=== PATIENT | male | born 1970 | race Caucasian/White ===

== ENCOUNTER → 2016-05-30 | Emergency (ER) | payer OTHER ==
[~2016-05-30] MED LIST: NALOXONE HCL 0.4 MG/ML VIAL IVPUSH ONE
[2016-05-30 18:26] VITALS: TEMP 97; BMI 30.7
--- NOTE | 2016-05-30 18:34 | PDOC ---
[id number] No Limitations - History of Present Illness Initial Comments: 05/30/16 18:36 Patient is a 45 year old male with no significant past medical history who was brought in by a friend to the [facility] waiting room after using drugs. Patient became apneic and slump in the wheelchair upon arrival. He was immediately brought into main ED with 100 O2 ample bag ventilation. Narcan 2 mg of Narcan were administered at 6:06 and patient became responsive. Patient was non combative but was disoriented. He noted that he had a fight with his ex girlfriend and took some pills. He stated I dont really know what I took maybe a little hydrocodone. He denies use of heroin. Patients friend noted that they were at a gas station and he went to get something and the patient was fine but as he came back he found him snoring and unresponsive. He states that he takes pills sometimes and I know he tried heroin few times and I think that the lgen sold him some heroin. 05/30/16 18:56 Patient notes that he has been "clean" for 4-5 days and after he left his girlfriends house he does not remember much of what happened. Patient says that he does not want go to detox. 05/30/16 18:59 Care of the patient will be turned over to Dr. Acevedo, overnight physician. <Julienne Mcdowell - Last Filed: 05/30/16 19:00> <Mendel Alvarez - Last Filed: 07/05/16 10:00> - General Stated Complaint: Overdose Time Seen by Provider: 05/30/16 18:19 Past History <Julienne Mcdowell - Last Filed: 05/30/16 19:00> - Past Medical History Thyroid Disease: No - Psycho/Social/Smoking Cessation Hx Anxiety: No Suicidal Ideation: No Smoking History: Never smoked Have you smoked in the past 12 months: No Number of Cigarettes Smoked Daily: 20 Information on smoking cessation initiated: No Hx Alcohol Use: No Drug/Substance Use Hx: No Substance Use Type: None <Mendel Alvarez - Last Filed: 07/05/16 10:00> - Past Medical History Allergies/Adverse Reactions: Allergies Allergy/AdvReac Type Severity Reaction Status Date / Time No Known Allergies Allergy Verified 05/30/16 18:26 Home Medications: Ambulatory Orders NK [No Known Home Medication] 05/30/16 Review of Systems - Review of Systems Able to Perform ROS?: No Comments:: 05/30/16 18:36 Unable to obtain ROS. <Julienne Mcdowell - Last Filed: 05/30/16 19:00> *Physical Exam - Vital Signs Last Vital Signs Temp Pulse Resp BP Pulse Ox 97.0 F L 110 H 18 130/77 100 05/30/16 18:05 05/30/16 18:05 05/30/16 18:05 05/30/16 18:05 05/30/16 18:05 - Physical Exam Comments: 05/30/16 18:37 GENERAL: Unresponsive HEAD: No signs of trauma EYES: +pin point pupils, sclera anicteric, conjunctiva clear ENT: Auricles normal inspection, hearing grossly normal, nares patent, oropharynx clear without exudates. Moist mucosa NECK: Normal ROM, supple, no lymphadenopathy, JVD, or masses LUNGS: Breath sounds equal, clear to auscultation bilaterally. No wheezes, and no crackles HEART: Regular rate and rhythm, normal S1 and S2, no murmurs, rubs or gallops ABDOMEN: Soft, nontender, normoactive bowel sounds. No guarding, no rebound. No masses EXTREMITIES: Normal range of motion, no edema. No clubbing or cyanosis. No cords, erythema, or tenderness NEUROLOGICAL: Deferred. SKIN: +no track branch noted. No rashes or lesions noted. <Julienne Mcdowell - Last Filed: 05/30/16 19:00> - Vital Signs Last Vital Signs Temp Pulse Resp BP Pulse Ox 97.0 F L 110 H 18 130/77 100 05/30/16 18:05 05/30/16 18:05 05/30/16 18:05 05/30/16 18:05 05/30/16 18:05 <Mendel Alvarez - Last Filed: 07/05/16 10:00> Heart Score/ECG Review #1 05/30/16 18:[address] Alvarez Impression: Normal sinus rhythm Normal rate Normal axis Normal EKG Vent rate 88 bpm <Julienne Mcdowell - Last Filed: 05/30/16 19:00> ED Treatment Course - LABORATORY CBC & Chemistry Diagram: 05/30/16 19:00 05/30/16 19:00 <Mendel Alvarez - Last Filed: 07/05/16 10:00> Medical Decision Making - Medical Decision Making 05/30/16 18:37 Patient is a 45 year old male with no significant past medical history who was brought in by a friend to the [facility] waiting room after using drugs. Patient became apneic and slump in the wheelchair upon arrival. He was immediately brought into main ED and started to ample bag ventilation at 100% O2. Narcan 2 mg of Narcan were administered at 6:06 and patient became responsive. Patient will be observed in the ED due to Narcan short life. 05/30/16 18:54 Patient was reevaluated and noted that he wants to leave. It was explained to him that Narcan is short acting and the medication that he took is long active. Since unsure of the drugs he took, patient needs to be observed for at least 3 hours. Patient agreed to stay for observation. Awaiting for U tox levels and blood work. Care of the patient will be turned over to Dr. Aceveod, overnight physician. <Julienne Mcdowell - Last Filed: 05/30/16 19:00> *DC/Admit/Observation/Transfer - Attestations Scribe Attestion: 05/30/16 18:38 Documentation prepared by DONNY Pickett, acting as medical records auditor for Mendel Alvarez MD/DO. <Julienne Mcdowell - Last Filed: 05/30/16 19:00> - Attestations Physician Attestion: 05/30/16 18:34 I, Dr. Mendel Alvarez, attest that this document has been prepared under my direction and personally reviewed by me in its entirety. I further attest, that it accurately reflects all work, treatment, procedures and medical decision -making performed by me. <Mendel Alvarez - Last Filed: 07/05/16 10:00> Diagnosis at time of Disposition: Drug overdose Qualifiers: Encounter type: initial encounter Injury intent: undetermined intent Qualified Code(s): T50.904A - Poisoning by unspecified drugs, medicaments and biological substances, undetermined, initial encounter - Discharge Dispostion Disposition: AGAINST MEDICAL ADVICE - Referrals Referrals: Sekou Morales MD [Primary Care Provider] - Call tomorrow - Patient Instructions Additional Instructions: AVOID DRUGS MEDICATION GIVEN TO OPPOSE HEROIN IS WEARING OFF AND YOU COULD FEEL THE RETURN OF HEROIN EFFECTS CONSIDER DETOX RETURN IF WORSENING OR NEW SYMPTOMS
[2016-05-30 19:11] LABS: BASOPHIL 0.6 % (0-2.0); EOSINOPHIL 0.8 % (0-4.5); MCHC 33.4 g/dl (32.0-35.9); MEAN CELL VOLUME 86.8 fl (80-96); MEAN PLT VOLUME 8.3 fl (7.5-11.1); NEUTROPHILS 74.7 % (42.8-82.8); PLATELET COUNT 275 K/MM3 (134-434); RDW 14.8 % (11.9-15.9); WHITE BLOOD COUNT 12.8 K/mm3 (4.0-10.0)
[2016-05-30 19:15] VITALS: BP 127/69; PULSE 65
--- NOTE | 2016-05-30 19:54 | PDOC ---
*Physical Exam - Vital Signs Last Vital Signs Temp Pulse Resp BP Pulse Ox 97.0 F L 65 20 127/69 100 05/30/16 18:05 05/30/16 18:55 05/30/16 18:55 05/30/16 18:55 05/30/16 18:55 - Physical Exam General Appearance: Yes: Nourished, Appropriately Dressed. No: Apparent Distress HEENT: positive: EOMI, KRISTOFER, Normal ENT Inspection Neck: positive: Supple. negative: Tender Respiratory/Chest: positive: Lungs Clear, Normal Breath Sounds. negative: Chest Tender, Respiratory Distress Cardiovascular: positive: Regular Rhythm, Regular Rate, Tachycardia Integumentary: positive: Normal Color Neurologic: positive: Fully Oriented, Alert, Normal Mood/Affect, Normal Response , Motor Strength 08/19 ED Treatment Course - LABORATORY CBC & Chemistry Diagram: 05/30/16 19:00 05/30/16 19:00 - ADDITIONAL ORDERS Additional order review: 05/30/16 19:00 RBC 5.57 MCV 86.8 MCHC 33.4 RDW 14.8 MPV 8.3 Neutrophils % 74.7 Lymphocytes % 16.6 Monocytes % 7.3 Eosinophils % 0.8 Basophils % 0.6 - Medications Given in the ED: ED Medications Discontinued Medications Generic Name Dose Route Start Last Admin Trade Name Brodie PRN Reason Stop Dose Admin Naloxone HCl 2 mg 05/30/16 18:19 05/30/16 18:22 Narcan - IVPUSH 05/30/16 18:20 2 mg ONCE ONE Administration Progress Note - Progress Note Progress Note: over an hour from narcan. respiratory and hemodynamically stable will sign out ama since refuses to stay longer for observation *DC/Admit/Observation/Transfer Diagnosis at time of Disposition: Drug overdose Qualifiers: Encounter type: initial encounter Injury intent: undetermined intent Qualified Code(s): T50.904A - Poisoning by unspecified drugs, medicaments and biological substances, undetermined, initial encounter - Discharge Dispostion Disposition: AGAINST MEDICAL ADVICE - Referrals Referrals: Sekou Morales MD [Primary Care Provider] - Call tomorrow - Patient Instructions Additional Instructions: AVOID DRUGS MEDICATION GIVEN TO OPPOSE HEROIN IS WEARING OFF AND YOU COULD FEEL THE RETURN OF HEROIN EFFECTS CONSIDER DETOX RETURN IF WORSENING OR NEW SYMPTOMS - Post Discharge Activity
[2016-05-30 20:23] LABS: ALBUMIN 3.9 g/dl (3.4-5.0); ANION GAP 10 (8-16); BILIRUBIN,TOTAL 0.4 mg/dL (0.2-1.0); CO2 26 mmol/L (21-32); GLUCOSE,RANDOM 148 mg/dL (74-106); SGOT/AST 18 U/L (15-37); SGPT/ALT 31 U/L (12-78)
[2016-05-30 20:24] LABS: ALK PHOS 65 U/L (45-117); TOT PROT 6.9 g/dl (6.4-8.2)
[2016-05-30 20:36] LABS: ALCOHOL < 5.0 mg/dl (0-5)
--- NOTE | 2016-05-31 10:28 | EKG ---
Test Reason : Blood Pressure : / mmHG Vent. Rate : 088 BPM Atrial Rate : 088 BPM P-R Int : 160 ms QRS Dur : 092 ms QT Int : 380 ms P-R-T Axes : 066 074 058 degrees QTc Int : 459 ms NORMAL SINUS RHYTHM BIATRIAL ENLARGEMENT ABNORMAL ECG NO PREVIOUS ECGS AVAILABLE Confirmed by CATRACHO MURDOCK, BANDAR ([id number]) on 05/31/2016 10:28:29 AM Referred By: Confirmed By:BANDAR HAYDEN MD
== END | disposition left against medical advice (07) ==
LOC: JER 18:05
PROC: 3E033GC Introduction of Other Therapeutic Substance into Peripheral Vein, Percutaneous Approach (ICD-10-PCS; principal; 2016-05-30)
DX: T50.994A Poisoning by other drugs, medicaments and biological substances, undetermined, initial encounter (principal); R40.20 Unspecified coma; F19.90 Other psychoactive substance use, unspecified, uncomplicated; Y92.89 Other specified places as the place of occurrence of the external cause
CPT/HCPCS: 36415; 80053; 80307; 85025; 93005; 93010; 96374; 99284-25

== ENCOUNTER 2017-07-03 02:11 | Emergency (ER) | payer OTHER ==
--- NOTE | 2017-07-03 02:13 | PDOC ---
Attending Attestation - Resident Resident Name: Michelle Alaniz - ED Attending Attestation I have performed the following: I have examined & evaluated the patient, The case was reviewed & discussed with the resident, I agree w/resident's findings & plan - HPI HPI: 07/03/17 02:19 Pt comes with EMS; cardiac arrest, on the [facility] Isaak airway [address] Pt received 3 EPI in the field, 1 Bicarb, 4mcg narcan. Pt found on [address] face down in vomit, and passerby called EMS. In the ER we continued CPR. - Physicial Exam PE: 07/03/17 02:21 Agree with resident exam. Pt never regained a pulse. We checked lack of cardiac motion with SONO. Pt was intubated with a 7.5 ETT in the ER, without difficulty. OGT placed. Epi x 1 given Blood glucose of 280s in the ER. Pt time of called at 2AM. Pt was down for a total of 40 minutes. He never regained a pulse. Me accepted the case; I spoke to ME [employer] Operator Shaun Thorpe Case # [id number] - Medical Decision Making 07/03/17 02:18 Melyssaestigmaite Germain ME accepted the case #[id number]
[2017-07-03 02:29] VITALS: BP 0/0; PULSE 0; TEMP 97.6; BMI 34.8
--- NOTE | 2017-07-03 02:32 | PDOC ---
History of Present Illness - General Stated Complaint: CARDIAC ARREST Time Seen by Provider: 07/03/17 02:12 History Source: EMS Exam Limitations: Clinical Condition - History of Present Illness Initial Comments: This is a 46 YOM with h/o IV heroin use who was BIBA after being found down and unconscious on [address] with vomit around him. A passerby called 911. EMS found him to be pulseless and started CPR with the Zander device, placed a supragottic airway and bagged him, found him to be asystolic, and gave a total of 3 doses of epinephrine, 1 dose of bicarb, 4 mg Narcan, all without change in the asystole. They measured his fingerstick BG to be 281. He was coded for a total of about 30 minutes PRODUCTION ESTIMATOR to the ED. There was no family or other vessel manager with the patient on scene. Past History - Past Medical History Allergies/Adverse Reactions: Allergies Allergy/AdvReac Type Severity Reaction Status Date / Time No Known Allergies Allergy Verified 02/21/17 12:53 Home Medications: Ambulatory Orders Metoclopramide HCl [Reglan -] 10 mg PO DAILY #7 tablet 02/21/17 Thyroid Disease: No - Suicide/Smoking/Psychosocial Hx Smoking History: Current every day smoker Have you smoked in the past 12 months: No Number of Cigarettes Smoked Daily: 20 Hx Alcohol Use: No Drug/Substance Use Hx: No Substance Use Type: None Review of Systems - Review of Systems Able to Perform ROS?: No (patient unconscious) *Physical Exam - Vital Signs Last Vital Signs Temp Pulse Resp BP Pulse Ox 97.6 F 0 L 0/0 07/03/17 02:17 07/03/17 02:17 07/03/17 02:17 - Physical Exam General Appearance: Yes: Obese, Other (unconscious, covered in pink vomit, pupils nonreactive, CPR in progress, initially with CPR in progress via Zander machine) HEENT: positive: Other (copious secretions and emesis, left anglican with 5x3 cm abrasion) Respiratory/Chest: positive: Lungs Clear, Crackles (diffusely with bagging) Cardiovascular: positive: Other (no palpable pulses) Gastrointestinal/Abdominal: positive: Protuberent Extremity: positive: Other (extremities are cool) Integumentary: positive: Other (skin mottling, abrasions and skin tears at point of Zander machine contact on anterior chest wall) Neurologic: positive: Other (unconscious, absent brainstem reflexes) Procedures - Intubation Time of Intubation: 01:55 Intubation Method: orotracheal Blade used: Mac Tube Size (Fr): 7.5 Tube position @ lip (cm): 24 Tube position confirmed by: CO2 detector, Breath sounds Breath Sounds after Intubation: equal Intubation Complications: no complications Medical Decision Making - Medical Decision Making 46 YOM with h/o IVDA (heroin) who p/w cardiopulmonary arrest. EMS did CPR and bagged via Isaak airway, coded for ~30 min PRODUCTION ESTIMATOR to the ED. Asystole without change with administration of epi, bicarb, naloxone. On exam he is unconscious, covered in vomit, Zander device administering CPR. Skin mottling, extremities cool. Pupils nonreactive, no cardiac activity on bedside cardiac US. Dr. Gaspar spoke with [place] welfare investigator [place]. They will take the case, [place] case #[id number]. *DC/Admit/Observation/Transfer Diagnosis at time of Disposition: Cardiac arrest, Heroin use, Respiratory arrest - Discharge Dispostion Disposition: Admit: No - Referrals - Patient Instructions - Post Discharge Activity
== END 2017-07-03 03:43 | disposition expired ==
LOC: JER 02:11
PROC: 5A02216 Assistance with Cardiac Output using Other Pump, Continuous (ICD-10-PCS; principal; 2017-07-03)
PROC: 0BH17EZ Insertion of Endotracheal Airway into Trachea, Via Natural or Artificial Opening (ICD-10-PCS; 2017-07-03)
PROC: 5A1935Z Respiratory Ventilation, Less than 24 Consecutive Hours (ICD-10-PCS; 2017-07-03)
PROC: 0D9670Z Drainage of Stomach with Drainage Device, Via Natural or Artificial Opening (ICD-10-PCS; 2017-07-03)
DX: I46.9 Cardiac arrest, cause unspecified (principal); F11.10 Opioid abuse, uncomplicated; F17.210 Nicotine dependence, cigarettes, uncomplicated
CPT/HCPCS: 99282-25